=== PATIENT | female | born 1970 | race African-American/Black ===

== ENCOUNTER 2016-07-01 12:12 | Inpatient (IN) | payer OTHER ==
[~2016-07-01] VITALS: Ht 170.2 cm; Wt 102.1 kg
[~2016-07-01 12:12] MED LIST: ALBUTEROL SULF8.5 GM INH; ZITHROMAX250 MG ORAL
[2016-07-01] MEDS ORDERED: Albuterol ud Inhalation HHN ONE ×2 (12:30→13:45)
[2016-07-01] MEDS ORDERED: Levofloxacin 500mg tab ORAL ONE (12:30)
[2016-07-01] MEDS ORDERED: Ipratropium 0.02% Inh Soln 2.5ml UD HHN ONE (12:30)
[2016-07-01] MEDS ORDERED: cefTRIAXone 1 GM in NS 55 ML IV ONE (13:45)
[2016-07-01] MEDS ORDERED: Solu-MEDROL 125mg Inj IVP ONE (13:45)
[2016-07-01 14:08] LABS: BASOPHILS % (AUTO) 0.5 % (0.0-2.0); EOSINOPHILS % (AUTO) 0.4 % (0.0-3.0); LYMPHOCYTES % (AUTO) 15.6 % (20.0-45.0); MEAN CORPUSCULAR HEMOGLOBIN 30.9 PG (27.0-31.0); MEAN CORPUSCULAR HGB CONC 33.3 G/DL (32.0-36.0); MEAN CORPUSCULAR VOLUME 93 FL (80-99); MEAN PLATELET VOLUME 6.3 FL (6.5-10.1); MONOCYTES % (AUTO) 6.9 % (1.0-10.0); NEUTROPHILS % (AUTO) 76.6 % (45.0-75.0); PLATELET COUNT 258 K/UL (150-450); RED BLOOD COUNT 4.08 M/UL (4.20-5.40); RED CELL DISTRIBUTION WIDTH 12.1 % (11.6-14.8); WHITE BLOOD COUNT 7.1 K/UL (4.8-10.8)
[2016-07-01 14:24] LABS: ALANINE AMINOTRANSFERASE 21 U/L (3-33); ALBUMIN/GLOBULIN RATIO 1.1 (1.0-2.7); ANION GAP 17 (5-15); ASPARTATE AMINO TRANSFERASE 23 U/L (5-40); CARBON DIOXIDE 26 mEQ/L (20-30); CHLORIDE 97 mEQ/L (98-107); CREATININE 0.7 mg/dL (0.5-0.9); GLOMERULAR FILTRATION RATE > 60 mL/min (>60); HEMOLYSIS 1; POTASSIUM 2.8 mEQ/L (3.4-4.9); SODIUM 140 mEQ/L (135-145); TOTAL PROTEIN 8.1 g/dL (6.6-8.7)
[2016-07-01 14:51] VITALS: BP 138/56
--- NOTE | 2016-07-01 15:05 | Emergency Room Report ---
History of Present Illness General Chief Complaint: Asthma Source: Patient Present Illness HPI 4 days ago, patient was exposed to lysol at work. Started wheezing at that time. Use of inhaler not helping with fairly severe dyspnea. Cough and fever. Was 102 this AM. Never with pneumonia. Not eating. Weak. Chest pain with coughing. No NVD. No dysuria. Allergies: Uncoded Allergies: Lysol air freshner (Allergy, Unknown, 07/01/16) Patient History Past Medical History: see triage record Social History: Denies: smoking Social History Narrative 0- engineering specialist for [employer] Reviewed Nursing Documentation: PMH: Agreed, PSxH: Agreed Nursing Documentation-PMH Past Medical History: No History, Except For Hx Asthma: Yes Review of Systems All Other Systems: negative except mentioned in HPI Physical Exam Vital Signs Date Time Temp Pulse Resp B/P Pulse Ox O2 Delivery O2 Flow Rate FiO2 07/01/16 12:13 98.2 91 20 130/82 96 Room Air Sp02 EP Interpretation: reviewed, normal General Appearance: well appearing, GCS 15, mild distress Head: normocephalic Eyes: bilateral eye PERRL, bilateral eye normal inspection ENT: moist mucus membranes Neck: supple Respiratory: crackles, wheezing, expiration, inspiration Cardiovascular #1: regular rate, rhythm Cardiovascular #2: 2+ radial (R) Gastrointestinal: normal inspection, normal bowel sounds, non tender, no mass, non-distended Musculoskeletal: back normal, gait/station normal, normal range of motion Neurologic: alert, oriented x3, grossly normal Psychiatric: mood/affect normal Skin: normal inspection, warm/dry Medical Decision Making Diagnostic Impression: Primary Impression: Pneumonia Qualified Codes: J18.9 - Pneumonia, unspecified organism Additional Impressions: Asthma Qualified Codes: J45.901 - Unspecified asthma with (acute) exacerbation Hypokalemia ER Course Patient presents with worsened asthma and fever. Ddx: pneumonia, asthmatic bronchitis, exacerbation of asthma, viral syndrome. In the past she has improved with breathing treatments. With fever will also obtain x-ray. With fever, starting levaquin. Still with dyspnea after breathing treatments. Repeat. CXR with RLL infiltrate. Initiate pneumonia w/u and treatment. IV hydration, solumedrol. Potassium low. Given PO. Treated for chest pain. Improved. Still no appetite and weak. Min exp wheezing. discussed with Dr. Martinez - admit med. Laboratory Tests Test 07/01/16 13:50 07/01/16 14:21 White Blood Count 7.1 K/UL (4.8-10.8) Red Blood Count 4.08 M/UL (4.20-5.40) L Hemoglobin 12.6 G/DL (12.0-16.0) Hematocrit 37.8 % (37.0-47.0) Mean Corpuscular Volume 93 FL (80-99) Mean Corpuscular Hemoglobin 30.9 PG (27.0-31.0) Mean Corpuscular Hemoglobin Concent 33.3 G/DL (32.0-36.0) Red Cell Distribution Width 12.1 % (11.6-14.8) Platelet Count 258 K/UL (150-450) Mean Platelet Volume 6.3 FL (6.5-10.1) L Neutrophils (%) (Auto) 76.6 % (45.0-75.0) H Lymphocytes (%) (Auto) 15.6 % (20.0-45.0) L Monocytes (%) (Auto) 6.9 % (1.0-10.0) Eosinophils (%) (Auto) 0.4 % (0.0-3.0) Basophils (%) (Auto) 0.5 % (0.0-2.0) Sodium Level 140 mEQ/L (135-145) Potassium Level 2.8 mEQ/L (3.4-4.9) L Chloride Level 97 mEQ/L (98-107) L Carbon Dioxide Level 26 mEQ/L (20-30) Anion Gap 17 (5-15) H Blood Urea Nitrogen 6 mg/dL (7-23) L Creatinine 0.7 mg/dL (0.5-0.9) Estimate Glomerular Filtration Rate > 60 mL/min (>60) Glucose Level 106 mg/dL (74-106) Lactic Acid Level 1.40 mmol/L (0.66-2.22) Calcium Level 9.0 mg/dL (8.6-10.2) Total Bilirubin 0.5 mg/dL (0.0-1.2) Aspartate Amino Transferase (AST) 23 U/L (5-40) Alanine Aminotransferase (ALT) 21 U/L (3-33) Alkaline Phosphatase 52 U/L (35-104) Total Protein 8.1 g/dL (6.6-8.7) Albumin 4.3 g/dL (3.5-5.2) Globulin 3.8 g/dL Albumin/Globulin Ratio 1.1 (1.0-2.7) Urine Color Pending Urine Appearance Pending Urine pH Pending Urine Specific [place] Pending Urine Protein Pending Urine Glucose (UA) Pending Urine Ketones Pending Urine Occult Blood Pending Urine Nitrite Pending Urine Bilirubin Pending Urine Urobilinogen Pending Urine Leukocyte Esterase Pending EKG Diagnostic Results Rate: tachycardiac ST Segments: no acute changes Rhythm Strip Diag. Results EP Interpretation: yes Rhythm: no PVC's, no ectopy, other - ST Chest X-Ray Diagnostic Results EP Interpretation: Yes Findings: no effusion, no pneumothorax, other - RLL Number of Views: 1 Last Vital Signs Date Time Temp Pulse Resp B/P Pulse Ox O2 Delivery O2 Flow Rate FiO2 07/01/16 14:51 99.3 117 18 138/56 98 Room Air Status: improved Disposition: ADMITTED INPATIENT Condition: Serious Referrals: MADDISONREFERRING (PCP) Jourdan Sim M.D. Jul 01, 2016 15:05
[2016-07-01 15:15] LABS: APPEARANCE,URINE CLEAR; KETONES,URINE 3+ (NEGATIVE); LEUKOCYTE ESTERASE ,URINE NEGATIVE (NEGATIVE); NITRITE,URINE NEGATIVE (NEGATIVE); PH,URINE 8 (4.5-8.0); PROTEIN,URINE NEGATIVE (NEGATIVE); UROBILINOGEN,URINE NORMAL MG/DL (0.0-1.0)
[2016-07-01] MEDS ORDERED: KCl 10% 40mEq/30ml liquid ORAL STA (15:20)
[2016-07-01 15:22] VITALS: BP 140/58
[2016-07-01] MEDS ORDERED: fentaNYL 100 mcg/2 mL IV ONE (15:45)
[2016-07-01 18:28] VITALS: BP 124/68
[2016-07-01] MEDS: DuoNeb 0.5-3(2.5)mg/3ml neb HHN SCH (19:29)
[2016-07-01 21:10] VITALS: BP 133/77
[2016-07-02] VITALS: BP 131/75
[2016-07-02] MEDS: DuoNeb 0.5-3(2.5)mg/3ml neb HHN SCH ×7 (01:00→23:00)
[2016-07-02 04:00] VITALS: BP 129/76
[2016-07-02 07:03] LABS: BASOPHILS % (AUTO) 0.3 % (0.0-2.0); LYMPHOCYTES % (AUTO) 17.6 % (20.0-45.0); MEAN CORPUSCULAR HEMOGLOBIN 31.1 PG (27.0-31.0); MEAN CORPUSCULAR HGB CONC 33.6 G/DL (32.0-36.0); MEAN CORPUSCULAR VOLUME 93 FL (80-99); MEAN PLATELET VOLUME 6.4 FL (6.5-10.1); MONOCYTES % (AUTO) 8.5 % (1.0-10.0); NEUTROPHILS % (AUTO) 73.7 % (45.0-75.0); PLATELET COUNT 250 K/UL (150-450); RED BLOOD COUNT 3.93 M/UL (4.20-5.40); RED CELL DISTRIBUTION WIDTH 12.2 % (11.6-14.8); WHITE BLOOD COUNT 6.3 K/UL (4.8-10.8)
[2016-07-02 07:26] LABS: ALANINE AMINOTRANSFERASE 16 U/L (3-33); ALBUMIN/GLOBULIN RATIO 0.9 (1.0-2.7); ANION GAP 17 (5-15); ASPARTATE AMINO TRANSFERASE 18 U/L (5-40); CALCIUM 8.7 mg/dL (8.6-10.2); CARBON DIOXIDE 24 mEQ/L (20-30); CHLORIDE 101 mEQ/L (98-107); CREATININE 0.6 mg/dL (0.5-0.9); GLOMERULAR FILTRATION RATE > 60 mL/min (>60); HEMOLYSIS 4; POTASSIUM 3.9 mEQ/L (3.4-4.9); SODIUM 142 mEQ/L (135-145); TOTAL PROTEIN 7.3 g/dL (6.6-8.7)
[2016-07-02 07:28] LABS: THYROID STIMULATING HORMONE 0.525 uIU/mL (0.300-4.500)
[2016-07-02 08:59] VITALS: BP 130/85
[2016-07-02] MEDS: Azithromycin 250mg tab ORAL SCH (09:25)
--- NOTE | 2016-07-02 09:35 | Diagnostic Imaging Report ---
Indication: COUGH Technique: 2 views of the chest Comparison: none Findings: There are bilateral infiltrates. The pleural spaces are clear. There is mild thoracic scoliotic deformity and secondary degenerative change Impression: Bilateral infiltrates, most likely pneumonia. Correlate with clinical findings
--- NOTE | 2016-07-02 11:01 | Cardiology Report ---
APPROVED REPORT EKG Measurement Heart [id number] VT [id number] Sinus tachycardia Possible Left atrial enlargement Nonspecific T wave abnormality Abnormal ECG
[2016-07-02 12:39] VITALS: BP 122/75
[2016-07-02] MEDS ORDERED: DuoNeb 0.5-3(2.5)mg/3ml neb HHN PRN (13:45)
[2016-07-02] MEDS ORDERED: cefTRIAXone 1 GM in NS 55 ML IVPB SCH (14:00)
[2016-07-02 16:00] VITALS: BP 118/73
--- NOTE | 2016-07-02 18:28 | History and Physical Report ---
DATE OF ADMISSION: 07/01/2016 CHIEF COMPLAINT: Wheezing and shortness of breath. HISTORY OF PRESENT ILLNESS: The patient is a 45-year-old woman who was admitted through the emergency department yesterday because of pneumonia. She became ill about five days ago after she was exposed to Lysol in her workplace. She states that she has had a bad reaction to Lysol exposure in the past with flu-like symptoms. Following this episode, she developed malaise and a runny nose and cough. She began having fever about four days ago up to 102 and it did not rylan. She developed wheezing which did not improve with her albuterol inhaler and she came to the emergency department. X-rays showed pneumonia. PAST MEDICAL HISORY: Asthma. She has no hypertension, diabetes, or hyperlipidemia. She has no other health problems. PAST SURGICAL HISTORY: Total joint replacement. ALLERGIES: Lysol air freshener MEDICATIONS: Albuterol that she uses about once a week. SOCIAL HISTORY: She does not drink or smoke. She works for [employer]. REVIEW OF SYSTEMS: Otherwise unremarkable. PHYSICAL EXAMINATION: GENERAL: The patient is overweight. VITAL SIGNS: Stable. Her temperature has been normal here. SKIN: Warm and dry HEENT: Head is normocephalic. NECK: No jugular venous distention. CHEST: Few rales. CARDIAC: Rhythm is regular. ABDOMEN: Soft, nontender. Liver and spleen not enlarged. EXTREMITIES: No clubbing, cyanosis, or edema. LABORATORY AND DIAGNOSTIC DATA: White count is normal. Influenza screen was negative. Hemoglobin is 12.6. Chemistry is unremarkable. Urinalysis is negative. Urine for Legionella is pending. Chest x-ray showing bilateral infiltrates and mild scoliosis. IMPRESSION: 1. Pneumonia. 2. Asthma. PLAN: The patient is improving on antibiotics and inhaled bronchodilators. If her condition is stable, early discharge is anticipated. Kirill Martinez M.D. DR: Jonathan JOB#: [id number] CC:
[2016-07-02 20:00] VITALS: BP 125/79
[2016-07-03] MEDS ORDERED: Zolpidem 5mg tab ORAL PRN (01:45)
[2016-07-03] MEDS: DuoNeb 0.5-3(2.5)mg/3ml neb HHN SCH ×3 (03:00→10:14)
[2016-07-03 04:00] VITALS: BP 128/74
[2016-07-03 08:02] VITALS: BP 121/74
[2016-07-03] MEDS ORDERED: ZITHROMAX250 MG ORAL (09:12)
[2016-07-03] MEDS ORDERED: DUONEB 0.5-3(2.53 ML HHN (09:12)
--- NOTE | 2016-07-03 09:15 | Discharge Summary ---
Discharge Summary Hospital Course Date of Admission Jul 01, 2016 at 14:57 Date of Discharge 07/03/16 Admitting Diagnosis pneumonia HPI Galilea Oliver is a 45 year old female who was admitted on Jul 01, 2016 at 14:57 for Pneumonia Consultations no Procedures no Hospital Course fever resolved and improved condition w abx dc home w HHN and zithromax Discharge Medications New Medications: Azithromycin* (Zithromax*) 250 Mg Tablet 500 MG ORAL DAILY, #7 TAB Ipratropium/Albuterol Sulfate (DuoNeb 0.5-3(2.5)mg/3ml) 3 Ml Ampul.neb 3 ML HHN tid prn, #60 EA Continued Medications: Albuterol Sulfate* (Albuterol Sulfate Mdi*) 8.5 Gm Hfa.aer.ad 2 PUFF INH Q3H, #1 INH 0 Refills Discharge Discharge Disposition Patient was discharged to home Discharge Diagnoses: (1) Pneumonia (2) Asthma DILSHAD HOOD Jul 03, 2016 09:15
[2016-07-03] MEDS: Azithromycin 250mg tab ORAL SCH (10:26)
== END 2016-07-03 14:08 | disposition home or self-care (01) | DRG 194 ==
LOC: EMR 12:33 → 4W 14:57 → EDBEDREQ 15:10
DX: J18.9 Pneumonia, unspecified organism (principal); J45.901 Unspecified asthma with (acute) exacerbation; E87.6 Hypokalemia; Z91.09 Other allergy status, other than to drugs and biological substances; Z96.60 Presence of unspecified orthopedic joint implant
CPT/HCPCS: 36415; 71020; 80053; 81003; 82164; 83605; 84443; 85025; 86710; 87040; 93005; 94640; 94664; J7620

== ENCOUNTER 2017-09-21 07:39 | Emergency (ER) | payer OTHER ==
[~2017-09-21] VITALS: Ht 167.6 cm; Wt 104.3 kg
[~2017-09-21 07:39] MED LIST changes: +DUONEB 0.5-3(2.53 ML HHN
[2017-09-21 08:03] VITALS: BP 125/73
--- NOTE | 2017-09-21 08:05 | Emergency Room Report ---
History of Present Illness General Chief Complaint: Upper Respiratory Illness Source: Patient, Medical Record Present Illness HPI Patient presents with complaint of possible aspiration On food on Friday Patient reports that she was eating food which included rice and jalapeno Isn't sure if she aspirated on the rice or the jalapeno She has had cough since then Denies any chest pain denies any back or flank pain Denies any fevers or chills Denies any vomiting or diarrhea Allergies: Uncoded Allergies: Lysol air freshner (Allergy, Unknown, 07/01/16) Patient History Past Medical History: see triage record Pertinent Family History: none Last Menstrual Period: 08/22/17 Reviewed Nursing Documentation: PMH: Agreed; PSxH: Agreed Nursing Documentation-PMH Past Medical History: No History, Except For Hx Cardiac Problems: No Hx Asthma: Yes Hx Cancer: No Hx Gastrointestinal Problems: No Hx Neurological Problems: No Review of Systems All Other Systems: negative except mentioned in HPI Physical Exam Vital Signs Date Time Temp Pulse Resp B/P (MAP) Pulse Ox O2 Delivery O2 Flow Rate FiO2 09/21/17 07:47 97.6 92 18 120/68 96 Room Air 97.5 Sp02 EP Interpretation: reviewed, normal General Appearance: well appearing, no apparent distress Head: normocephalic, atraumatic Eyes: bilateral eye PERRL, bilateral eye EOMI ENT: hearing grossly normal, normal pharynx, TMs + canals normal, uvula midline Neck: full range of motion, supple, no meningismus, no bony tend Respiratory: lungs clear, normal breath sounds, no rhonchi, no respiratory distress, no retraction, no accessory muscle use Cardiovascular #1: normal peripheral pulses, regular rate, rhythm, no edema, no gallop, no JVD, no murmur Gastrointestinal: normal bowel sounds, non tender, soft, no mass, no organomegaly, non-distended, no guarding, no hernia, no pulsatile mass, no rebound Genitourinary: no CVA tenderness Musculoskeletal: normal inspection Neurologic: oriented x3, responsive, 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, motor strength/ tone normal, sensory intact Psychiatric: mood/affect normal Skin: normal color, no rash, warm/dry, palpation normal Lymphatic: normal inspection, no adenopathy Medical Decision Making Diagnostic Impression: Primary Impression: Aspiration pneumonia ER Course Given the patient's presentation history initial x-ray imaging was obtained Patient continued to saturate well does not show any signs of respiratory distress Was remarkable regarding possible developing right-sided lower infiltrate Therefore patient had further blood work initiated Continues to do well blood work is also appropriate Patient is appropriate candidate for outpatient attempt And will return with any worsening symptoms otherwise follow up with primary physician next 2 days Labs Test 09/21/17 08:45 White Blood Count 7.1 K/UL (4.8-10.8) Red Blood Count 4.39 M/UL (4.20-5.40) Hemoglobin 13.7 G/DL (12.0-16.0) Hematocrit 41.5 % (37.0-47.0) Mean Corpuscular Volume 95 FL (80-99) Mean Corpuscular Hemoglobin 31.3 PG (27.0-31.0) Mean Corpuscular Hemoglobin Concent 33.1 G/DL (32.0-36.0) Red Cell Distribution Width 11.5 % (11.6-14.8) Platelet Count 292 K/UL (150-450) Mean Platelet Volume 6.2 FL (6.5-10.1) Neutrophils (%) (Auto) 67.3 % (45.0-75.0) Lymphocytes (%) (Auto) 17.5 % (20.0-45.0) Monocytes (%) (Auto) 11.2 % (1.0-10.0) Eosinophils (%) (Auto) 2.5 % (0.0-3.0) Basophils (%) (Auto) 1.5 % (0.0-2.0) Sodium Level 139 MMOL/L (136-145) Potassium Level 3.8 MMOL/L (3.5-5.1) Chloride Level 106 MMOL/L (98-107) Carbon Dioxide Level 25 MMOL/L (21-32) Anion Gap 8 mmol/L (5-15) Blood Urea Nitrogen 9 mg/dL (7-18) Creatinine 0.6 MG/DL (0.55-1.30) Estimat Glomerular Filtration Rate > 60 mL/min (>60) Glucose Level 104 MG/DL (74-106) Calcium Level 8.6 MG/DL (8.5-10.1) Total Bilirubin 0.5 MG/DL (0.2-1.0) Aspartate Amino Transf (AST/SGOT) 17 U/L (15-37) Alanine Aminotransferase (ALT/SGPT) 28 U/L (12-78) Alkaline Phosphatase 48 U/L (46-116) Total Creatine Kinase 145 U/L (26-308) Creatine Kinase MB 0.7 NG/ML (0.0-3.6) Creatine Kinase MB Relative Index 0.4 Total Protein 7.5 G/DL (6.4-8.2) Albumin 3.3 G/DL (3.4-5.0) Globulin 4.2 g/dL Albumin/Globulin Ratio 0.8 (1.0-2.7) Rhythm Strip Diag. Results EP Interpretation: yes Rate: 77 Rhythm: NSR, no PVC's, no ectopy Chest X-Ray Diagnostic Results Chest X-Ray Diagnostic Results : Chest X-Ray Ordered: Yes # of Views/Limited/Complete: 1 View Indication: Shortness of Breath Interpretation: no effusion, no pneumothorax, other - Questionable right lower infiltrate Impression: Other - Early right lower lobe infiltrate Electronically Signed by: Carmen Colvin DO Last Vital Signs Date Time Temp Pulse Resp B/P (MAP) Pulse Ox O2 Delivery O2 Flow Rate FiO2 09/21/17 07:47 97.6 92 18 120/68 96 Room Air 97.5 Status: improved Disposition: HOME, SELF-CARE Condition: Improved Scripts Albuterol Sulfate* (ALBUTEROL SULFATE MDI*) 8.5 Gm Hfa.aer.ad 2 PUFF INH Q4H PRN for cough/wheezing, #1 EA 0 Refills Prov: Carmen Colvin DO 09/21/17 Levofloxacin* (LEVAQUIN*) 750 Mg Tablet 750 MG ORAL DAILY for 7 Days, TAB Prov: Carmen Colvin DO 09/21/17 Referrals: NOT CHOSEN IPA/MD,REFERRING (PCP) Additional Instructions: Patient is provided with the discharge instructions notified to follow up with primary doctor in the next 2-3 days otherwise return to the er with any worsening symptoms. Please note that this report is being documented using [employer] technology. This can lead to erroneous entry secondary to incorrect interpretation by the dictating instrument. Carmen Colvin DO Sep 21, 2017 08:05
--- NOTE | 2017-09-21 08:22 | Diagnostic Imaging Report ---
EXAM: XR Chest, 1 View CLINICAL HISTORY: SOB TECHNIQUE: Frontal view of the chest. COMPARISON: Chest x-ray 07/01/16 FINDINGS: Lungs: Mild, streaky opacities in the right lower lung may be a developing infiltrate. Pleural space: Unremarkable. No pneumothorax. Heart: Unremarkable. No cardiomegaly. Mediastinum: Unremarkable. Bones/joints: Mild dextroscoliosis midthoracic spine. IMPRESSION: Mild, streaky opacities in the right lower lung may be a developing infiltrate.
[2017-09-21] MEDS ORDERED: Sodium Chloride 500ML 500 ML IV ONE (08:40)
[2017-09-21] MEDS ORDERED: Albuterol ud Inhalation HHN ONE (08:45)
[2017-09-21 09:26] LABS: BASOPHILS % (AUTO) 1.5 % (0.0-2.0); EOSINOPHILS % (AUTO) 2.5 % (0.0-3.0); HEMATOCRIT 41.5 % (37.0-47.0); HEMOGLOBIN 13.7 G/DL (12.0-16.0); LYMPHOCYTES % (AUTO) 17.5 % (20.0-45.0); MEAN CORPUSCULAR VOLUME 95 FL (80-99); MONOCYTES % (AUTO) 11.2 % (1.0-10.0); NEUTROPHILS % (AUTO) 67.3 % (45.0-75.0); PLATELET COUNT 292 K/UL (150-450); RED BLOOD COUNT 4.39 M/UL (4.20-5.40); RED CELL DISTRIBUTION WIDTH 11.5 % (11.6-14.8); WHITE BLOOD COUNT 7.1 K/UL (4.8-10.8)
[2017-09-21 09:27] LABS: ANION GAP 8 mmol/L (5-15); BLOOD UREA NITROGEN 9 mg/dL (7-18); CALCIUM 8.6 MG/DL (8.5-10.1); CARBON DIOXIDE 25 MMOL/L (21-32); CHLORIDE 106 MMOL/L (98-107); CREATININE 0.6 MG/DL (0.55-1.30); POTASSIUM 3.8 MMOL/L (3.5-5.1); SODIUM 139 MMOL/L (136-145)
[2017-09-21 09:42] LABS: ALANINE AMINOTRANSFERASE 28 U/L (12-78); ALBUMIN 3.3 G/DL (3.4-5.0); ALBUMIN/GLOBULIN RATIO 0.8 (1.0-2.7); ALKALINE PHOSPHATASE 48 U/L (46-116); ASPARTATE AMINO TRANSFERASE 17 U/L (15-37); BILIRUBIN,TOTAL 0.5 MG/DL (0.2-1.0); CKMB 0.7 NG/ML (0.0-3.6); CREATINE KINASE 145 U/L (26-308)
[2017-09-21] MEDS ORDERED: LEVAQUIN750 MG ORAL (10:52)
[2017-09-21] MEDS ORDERED: ALBUTEROL SULF8.5 GM INH (10:52)
[2017-09-21 11:00] VITALS: BP 141/80
== END 2017-09-21 11:00 | disposition home or self-care (01) ==
LOC: EMR 08:02
DX: J69.0 Pneumonitis due to inhalation of food and vomit (principal); J45.909 Unspecified asthma, uncomplicated
CPT/HCPCS: 36415; 71045; 80053; 82550; 82553; 85025; 87040; 94640; 94664; 96365; 99284; J1956; J7040; 96360; 96361